=== PATIENT | female | born 1980 | race Two or more races ===

== ENCOUNTER 2017-01-09 07:06 | Day surgery (SDC) | payer BC, OTHER ==
[2017-01-09] MEDS ORDERED: Sodium Chloride 0.9% 10 ML Syringe FLUSH PRN (07:18)
[2017-01-09] MEDS ORDERED: fentaNYL 100 MCG/2 ML SDV ONE (07:49)
[2017-01-09] MEDS ORDERED: Midazolam 1 MG/ML 2 ML SDV ONE (07:49)
[2017-01-09] MEDS ORDERED: Propofol 200 MG/20 ML SDV ONE (07:49)
[2017-01-09] MEDS ORDERED: MVI, Adult with Vitamin K 10 ML, Thiamine 200 MG, Chromium/Copper/Mang/Selen/Zn 1 ML in... IV ONE ×4 (08:00)
[2017-01-09] MEDS ORDERED: Glycopyrrolate 0.2 MG/ML 2 ML SYRINGE IVPUSH ONE (08:00)
[2017-01-09] MEDS ORDERED: Lactated Ringers 1,000 ML IV ONE (08:00)
[2017-01-09] MEDS ORDERED: Ondansetron 4 MG/2 ML SDV ONE (08:20)
[2017-01-09] MEDS ORDERED: Pantoprazole 40 MG Vial IVPUSH ONE (08:26)
[2017-01-09] MEDS ORDERED: Cyanocobalamin (Vitamin B12) 1,000 MCG/ML SDV IM ONE (09:00)
[2017-01-09] MEDS ORDERED: Hydrocortisone Sodium Succinate 100 MG/2 ML SDV IV PRN (09:58)
[2017-01-09] MEDS ORDERED: Famotidine 20 MG/2 ML SDV IV PRN (10:00)
[2017-01-09] MEDS ORDERED: diphenhydrAMINE 50 MG/ML SDV IVPUSH PRN (10:00)
[2017-01-09 10:36] VITALS: BP 101/70
--- NOTE | 2017-01-18 07:51 | OR ---
DATE OF PROCEDURE: 01/09/2017 PREOPERATIVE DIAGNOSIS: Epigastric pain status post gastric bypass. POSTOPERATIVE DIAGNOSES: Epigastric pain status post gastric bypass with: 1. Small marginal ulcer. 2. Slight stricturing at gastrojejunostomy. OPERATIVE PROCEDURE: Upper GI endoscopy with: 1. Biopsies of gastric pouch for CLOtest. 2. Dilation of gastrojejunostomy. ANESTHESIA: IV sedation. INDICATION FOR PROCEDURE: The patient is status post Binh-en-Y gastric bypass, presenting with some epigastric pain. In the past, she has had problems with marginal ulcer and been treated with Protonix and Carafate. She presents now for further workup including upper GI endoscopy with biopsies and/or dilation as indicated. Potential risks including bleeding and perforation were discussed and the patient wishes to proceed. DETAILS OF PROCEDURE: The patient was taken to the operating room and placed in a left lateral decubitus position. IV sedation was administered after which the upper GI endoscope was passed orally through the length of the esophagus and into the gastric pouch, from there through the gastrojejunostomy roughly 20 cm into the Binh limb. Findings included normal hypopharynx, larynx, upper esophageal sphincter, and esophageal body as was the EG junction. Within the pouch, there was some slight redness, and at the gastrojejunostomy, there was very slight narrowing of the anastomosis, although scope easily passed through that area. There was a small marginal ulcer in the jejunum just beyond the gastrojejunostomy. At this point, biopsies were obtained from the gastric pouch, sent for CLOtest for H. pylori. Minimal bleeding from the biopsy sites was seen and the procedure then concluded. The patient was taken to the recovery room in satisfactory condition. The patient's preoperative lab this morning showed a hemoglobin of 9.1. Ferritin level of 3, a strikingly low vitamin B12 of 464, and folate of 16.2, the latter two were not in acceptable range. The patient was given an injection of vitamin B12 today and received 510 mg of Feraheme as an iron injection. We will also place the patient now on Protonix 40 mg daily, #90, refill x3; liquid Carafate 500 mg q.i.d., 1 month supply, refill x6; and then Vitron-C one tablet daily. The patient will be following up with Isabella Max in 1 month at [facility]. At that time, we will likely repeat the Feraheme infusion to get her caught up in terms of her iron stores. Hemres Breen MD /[id number]
== END 2017-01-09 11:47 | disposition home or self-care (01) ==
LOC: JP.SDS 07:06
PROVIDERS: ATTEND Surgery
DX: K28.9 Gastrojejunal ulcer, unspecified as acute or chronic, without hemorrhage or perforation (principal); K91.89 Other postprocedural complications and disorders of digestive system; Z88.8 Allergy status to other drugs, medicaments and biological substances
CPT/HCPCS: 36415; 43239; 43249; 80053; 82607; 82728; 82746; 83735; 84100; 85027; 87081; C9113; J2250; J2405; J2704; J3010; J3411; J3420; J7050; J7120; Q0138